=== PATIENT | male | born 1985 | race Caucasian/White ===

== ENCOUNTER 2021-01-21 21:03 | Emergency (ER) | payer OTHER ==
[2021-01-21 21:31] VITALS: TEMP 98.4
--- NOTE | 2021-01-21 22:08 | XR ---
EXAMINATION TYPE: XR forearm LT DATE OF EXAM: 01/21/2021 COMPARISON: NONE HISTORY: Lump on the arm TECHNIQUE: 2 views FINDINGS: There is focal soft tissue swelling on the posterior mid ulna on the lateral view. There is no calcification. Radius and ulna appear intact. IMPRESSION: Focal soft tissue swelling. No fracture seen.
--- NOTE | 2021-01-21 22:55 | ED ---
Skin/Abscess/FB HPI - General Chief complaint: Skin/Abscess/Foreign Body Stated complaint: L Arm Bump Time Seen by Provider: 01/21/21 21:32 Source: patient, RN notes reviewed Mode of arrival: ambulatory Limitations: no limitations - History of Present Illness Initial comments: Patient is a 35-year-old male that presents to emergency room complaining of left forearm raised red area. 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 She also thought that he might of been a bug bite that got slightly infected. He said that it is mildly tender to the touch hard. He denied any other issues or complaints. He was a well-appearing 35-year-old male who did not appear to be in any distress or pain, was well-hydrated. He denied any chest pain short of breath headache nausea vomiting diarrhea constipation fever fatigue chills decreased range of motion sensation in his left forearm. - Related Data Previous Rx's Medication Instructions Recorded Cephalexin [Keflex] 500 mg PO Q6HR #40 cap 01/21/21 Allergies Allergy/AdvReac Type Severity Reaction Status Date / Time No Known Allergies Allergy Verified 01/21/21 22:06 Review of Systems ROS Statement: Those systems with pertinent positive or pertinent negative responses have been documented in the HPI. ROS Other: All systems not noted in ROS Statement are negative. Past Medical History Past Medical History: No Reported History History of Any Multi-Drug Resistant Organisms: None Reported Past Surgical History: No Surgical Hx Reported Past Psychological History: No Psychological Hx Reported Smoking Status: Current every day smoker Past Alcohol Use History: Occasional Past Drug Use History: Marijuana General Exam Limitations: no limitations General appearance: alert, in no apparent distress Head exam: Present: atraumatic, normocephalic, normal inspection Eye exam: Present: normal appearance, PERRL, EOMI. Absent: scleral icterus, conjunctival injection, periorbital swelling Neck exam: Present: normal inspection Respiratory exam: Present: normal lung sounds bilaterally. Absent: respiratory distress, wheezes, rales, rhonchi, stridor Cardiovascular Exam: Present: regular rate, normal rhythm, normal heart sounds. Absent: systolic murmur, diastolic murmur, rubs, gallop, clicks Extremities exam: Present: normal inspection, full ROM, normal capillary refill. Absent: tenderness, pedal edema, joint swelling, calf tenderness Neurological exam: Present: alert, oriented X3 Psychiatric exam: Present: normal affect, normal mood Skin exam: Present: warm, dry, intact, normal color, other (One raised erythematous area to the posterior aspect of the left forearm mildly tender to the touch.). Absent: rash Course Vital Signs 01/21/21 21:28 Temperature 98.4 F Pulse Rate 96 Respiratory 20 Rate Blood Pressure 151/81 O2 Sat by Pulse 98 Oximetry Medical Decision Making - Medical Decision Making 35-year-old male complaining of a red swollen bump on his left forearm. X-ray left forearm ordered. No acute osseous abdomen noted. Patient most likely has a localized cellulitis from a bug bite. Case discussed with Dr. Guido, patient discharge home with follow-up to primary care and antibiotics. - Radiology Data Radiology results: report reviewed, image reviewed X-ray of the left forearm: Focal soft tissue swelling. No fracture seen. Disposition Clinical Impression: Cellulitis of left forearm Disposition: HOME SELF-CARE Condition: Stable Instructions (If sedation given, give patient instructions): Cellulitis (ED) Additional Instructions: Please return to the Emergency Department if symptoms worsen or any other concerns. Follow-up with primary care in the next 1-2 days. Take antibiotics as prescribed. Keep area clean and dry. Take Motrin and Tylenol as needed for pain. Prescriptions: Cephalexin [Keflex] 500 mg PO Q6HR #40 cap Is patient prescribed a controlled substance at d/c from ED?: No Referrals: None,Stated [Primary Care Provider] - 1-2 days Time of Disposition: 22:55
[2021-01-21 23:06] VITALS: BP 131/84; PULSE 60; RESP 16
== END 2021-01-21 23:09 | disposition home or self-care (01) ==
LOC: EC 21:03
DX: L03.114 Cellulitis of left upper limb (principal); F17.200 Nicotine dependence, unspecified, uncomplicated; F12.90 Cannabis use, unspecified, uncomplicated
CPT/HCPCS: 99283